=== PATIENT | male | born 1995 | race Caucasian/White ===

== ENCOUNTER 2021-03-06 03:24 | Emergency (ER) | payer OTHER ==
[~2021-03-06] VITALS: Ht 182.8 cm; Wt 130.1 kg
--- NOTE | 2021-03-06 04:26 | ED Lower Extremity ---
General Chief Complaint: Lower Extremity Stated Complaint: FALL/RIGHT LEG PAIN Nursing Triage Note: PATIENT STATES SHE MISSED THE LAST COUPLE OF STAIRS AND FELL. C/O RIGHT CALF PAIN. Nursing Sepsis Screen: No Definite Risk Source: patient Exam Limitations: no limitations History of Present Illness Date Seen by Provider: Mar 06, 2021 Time Seen by Provider: 03:39 Initial Comments Biological male transgender to female and goes by the name Roxanna. She is here with fall at home on the last step. Came down on the right leg. Complains of pain to the lateral aspect of the right mid lower leg. No significant lesions. Denies other injury. Does complain of some pain with walking to the lateral aspect of the right lower extremity distal leg while here, noted to have fairly high blood pressure. She states that she has been on blood pressure medicines after her last hospitalization for spinal infection but then stopped taking them. Strong family history of hypertension. She does not remember what she was on. Denies vision problems, chest pain, breathing problems, headaches or other concerns. Onset: this morning Severity: mild, moderate Pain/Injury Location: left leg Method of Injury: fell Modifying Factors: Improves With Immobilization; Worse With Movement Allergies and Home Medications Patient Home Medication List Home Medication List Reviewed: Yes Review of Systems Constitutional: see HPI; No chills, No fever EENTM: no symptoms reported Respiratory: no symptoms reported; No orthopnea, No short of breath Cardiovascular: no symptoms reported; No chest pain, No edema, No palpitations Gastrointestinal: No nausea, No vomiting Musculoskeletal: joint pain, muscle pain Skin: No change in color, No lesions Psychiatric/Neurological: Denies Headache, Denies Weakness Past Ctvmufy-Lkpqse-Eqsart Hx Past Med/Social Hx: Reviewed Nursing Past Med/Soc Hx Patient Social History Recent Infectious Disease Expo: No Family Medical History Reviewed Nursing Family Hx Physical Exam Vital Signs Vital Signs - First Documented 03/06/21 03:31 Temp 37.4 Pulse 105 Resp 24 B/P (MAP) 245/115 (158) Pulse Ox 98 O2 Delivery Room Air Capillary Refill : Less Than 3 Seconds Height, Weight, BMI Height: '" Weight: lbs. oz. kg; 38.00 BMI Method: General Appearance: WD/WN, no apparent distress HEENT: PERRL/EOMI Cardiovascular: regular rate, rhythm, no murmur Respiratory: lungs clear, normal breath sounds Gastrointestinal: non tender, soft Back: normal inspection, no CVA tenderness Legs: right leg pain, right leg soft tissue tenderness, right leg other (Pain to the lateral aspect of the leg at the mid tibia region. No obvious significant swelling of the calf on the right versus the left.) Neurologic/Psychiatric: alert, oriented x 3 Skin: normal color, warm/dry Progress/Results/Core Measures Results/Orders My Orders Orders - JAGRUTI HER MD Tibia/Fibula, Right, 2 Views (03/06/21 03:37) Vital Signs/I&O 03/06/21 03:31 Temp 37.4 Pulse 105 Resp 24 B/P (MAP) 245/115 (158) Pulse Ox 98 O2 Delivery Room Air Blood Pressure Mean: 158 Progress Progress Note : Progress Note Seen and evaluated. Declined pain medicine at this point. Monitor patient. 0420: X-ray shows increased density in the distal tibia of unknown significance. I did discuss this with the patient that he needs to follow-up for further evaluation of that. Also noted to have blood pressure 190s over 100s. Patient states that he has blood pressure problems that he knows about but is not on any meds. Cannot remember what he was on previously. Is willing to restart medications and follow-up with [facility]. I will send a copy of the chart to them. Amlodipine 10 mg p.o. ordered now and we will continue that as outpatient. Discharged home with return precautions. Patient verbalized understanding of instructions and agreement with plan. Diagnostic Imaging Diagonstic Imaging: Xray Plain Films/CT/US/NM/MRI: other Comments No obvious fracture. 1 x 4 cm area of increased density within the distal tibia on the right of unknown significance. Departure Impression Primary Impression: Contusion of right lower leg Qualified Codes: S80.11XA - Contusion of right lower leg, initial encounter Additional Impression: Uncontrolled hypertension Disposition: HOME, SELF-CARE Condition: Stable Departure-Patient Inst. Decision time for Depature: 04:32 Referrals: [facility] (PCP/Family) Primary Care Physician Patient Instructions: High Blood Pressure (DC), Low Salt Diet, Contusion (DC) Add. Discharge Instructions: All discharge instructions reviewed with patient and/or family. Voiced understanding. You have a small lesion in the bone of the right pimentel bone at the ankle and. This is of unknown significance but you definitely need to follow-up for this. We also noted you have quite high blood pressure here. Further work-up is needed for that. You need to follow-up with [facility] as soon as possible. Ca ll for appointment. Return for worse pain, swelling, weakness, breathing problems or other concerns as needed. You may take Tylenol/acetaminophen 1000 mg every 6 hours as needed for pain. Ice packs to affected area 20 minutes/h while awake for the few days and then as needed. Rest the leg over the next few days. Return to normal activities once healed or markedly better. Follow-up with your doctor as needed. Copy Copies To 2: JANINE SALVADOR MD, TIMOTHY D MD Mar 06, 2021 04:26
[2021-03-06] MEDS ORDERED: AMLO-251 PO (04:40)
[2021-03-06] MEDS ORDERED: amLODIPine 5 MG (NORVASC) TAB PO ONE (04:45)
[2021-03-06 04:47] VITALS: BP 193/121
--- NOTE | 2021-03-06 08:29 | Diagnostic Imaging Report ---
INDICATION: Fall with pain in the lateral calf on the right. TIME OF EXAM: 3:52 AM FINDINGS: Frontal and lateral views of the tibia and fibula were obtained. Alignment at the knee and ankle appears normal. Tibia and fibula are intact. No fractures are seen. Benign sclerotic lesion of the distal tibia is noted. IMPRESSION: No acute bony abnormality is detected. Dictated by: Dictated on workstation # [id number]
== END 2021-03-06 04:53 | disposition home or self-care (01) ==
LOC: ER 03:29
DX: S80.11XA Contusion of right lower leg, initial encounter (principal); I10 Essential (primary) hypertension; W19.XXXA Unspecified fall, initial encounter; Y92.009 Unspecified place in unspecified non-institutional (private) residence as the place of occurrence of the external cause
CPT/HCPCS: 73590